=== PATIENT | female | born 1985 | race African-American/Black ===

== ENCOUNTER 2017-09-07 21:14 | Emergency (ER) | payer BC ==
[~2017-09-07] VITALS: Ht 157.5 cm; Wt 59.0 kg
[2017-09-08] MEDS ORDERED: ROBITUSSIN100 MG/53 PO (00:02)
[2017-09-08 00:15] VITALS: BP 107/63
== END 2017-09-08 00:16 | disposition home or self-care (01) ==
LOC: ER 21:14
DX: R05 Cough (principal); R06.02 Shortness of breath; R06.2 Wheezing; R06.00 Dyspnea, unspecified

== ENCOUNTER 2019-10-12 00:14 | Emergency (ER) | payer OTHER ==
[~2019-10-12] VITALS: Ht 152.4 cm; Wt 63.5 kg
[~2019-10-12 00:14] MED LIST: ROBITUSSIN100 MG/53 PO
[2019-10-12 02:20] LABS: ABSOLUTE NEUTROPHILS 8.9 thou/uL (1.4-8.2); BASOPHILS 0.2 % (0.0-2.0); HEMATOCRIT 42.5 % (37.0-47.0); HEMOGLOBIN 14.1 gm/dL (12.0-15.0); LYMPHOCYTES 11.1 % (24.0-44.0); MCH 30.3 pg (26.0-34.0); MCHC 33.3 g/dL (28.0-37.0); PLATELET COUNT 318 thou/uL (150-400); POLYS 82.7 % (36.0-66.0); RBC 4.67 mil/uL (4.20-5.00); RDW 13.6 % (10.5-14.5); WBC 10.7 thou/uL (4.0-11.0)
[2019-10-12 02:26] LABS: ANION GAP 15 mmol/L (7-16); BUN 11 mg/dL (7-18); CALCIUM 9.2 mg/dL (8.5-10.1); CHLORIDE 103 mmol/L (98-107); CO2 21 mmol/L (21-32); CREATININE 1.2 mg/dL (0.6-1.0); GLUCOSE 134 mg/dL (74-106); POTASSIUM 3.6 mmol/L (3.5-5.1); SODIUM 139 mmol/L (136-145)
[2019-10-12 02:32] LABS: ALBUMIN 4.4 g/dL (3.4-5.0); DIRECT BILIRUBIN < 0.1 mg/dL (<0.1-0.2); SGOT 20 U/L (15-37); SGPT 22 U/L (30-65); TOTAL BILIRUBIN 0.4 mg/dL (0.2-1.0); TOTAL PROTEIN 8.2 g/dL (6.4-8.2)
[2019-10-12 02:36] LABS: URINE BILIRUBIN NEGATIVE (Negative); URINE BLOOD NEGATIVE (Negative); URINE CLARITY SL CLOUDY; URINE COLOR YELLOW; URINE GLUCOSE-RANDOM* NEGATIVE (Negative); URINE KETONES 3+ (Negative); URINE LEUKOCYTES-REFLEX NEGATIVE (Negative); URINE NITRITE-REFLEX NEGATIVE (Negative); URINE PROTEIN (DIPSTICK) NEGATIVE (Negative); URINE UROBILINOGEN 0.2 E.U./dl (0.2-1.0)
[2019-10-12 02:45] LABS: LIPASE 83 U/L (73-393)
[2019-10-12] MEDS ORDERED: ZOFRAN ODT4 MG PO (05:17)
[2019-10-12 05:31] VITALS: BP 109/55
== END 2019-10-12 05:32 | disposition home or self-care (01) ==
LOC: ER 00:14
PROVIDERS: Emergency Medicine
DX: R11.2 Nausea with vomiting, unspecified (principal); Z91.09 Other allergy status, other than to drugs and biological substances

== ENCOUNTER 2021-01-10 18:34 | Emergency (ER) | payer OTHER ==
[~2021-01-10] VITALS: Ht 157.5 cm; Wt 68.0 kg
[~2021-01-10 18:34] MED LIST changes: +ZOFRAN ODT4 MG PO
[2021-01-10 20:17] VITALS: BP 110/69
== END 2021-01-10 20:17 | disposition home or self-care (01) ==
LOC: ER 18:34
DX: M79.605 Pain in left leg (principal); R20.2 Paresthesia of skin; Z91.09 Other allergy status, other than to drugs and biological substances; Z79.891 Long term (current) use of opiate analgesic